=== PATIENT | male | born 2000 | race Caucasian/White ===

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

== ENCOUNTER 2024-08-13 02:59 | Emergency (ER) | payer OTHER ==
[~2024-08-13] VITALS: Ht 172.7 cm; Wt 181.0 kg
[~2024-08-13 02:59] MED LIST changes: +AUGMENTIN875TAB PO; +TESSALON PER100 MG PO; +ZITHROMAX500 MG PO
[2024-08-13 03:10] VITALS: BP 176/71
[2024-08-13] MEDS ORDERED: IBUPROFEN600 MG PO (20:18)
== END 2024-08-13 03:10 | disposition home or self-care (01) | DRG 951 ==
LOC: ED 02:59
DX: Z02.89 Encounter for other administrative examinations (principal); Z04.1 Encounter for examination and observation following transport accident; F10.129 Alcohol abuse with intoxication, unspecified; J45.909 Unspecified asthma, uncomplicated

== ENCOUNTER 2024-08-13 17:52 | Emergency (ER) | payer OTHER ==
[~2024-08-13] VITALS: Ht 188 cm; Wt 172.0 kg
[2024-08-13] VITALS (9 sets, daily range): BP systolic 148–193; BP diastolic 79–119
[2024-08-13] MEDS ORDERED: Diph, Acellular Pertussis, Tet 0.5 ML/VIAL (Tdap) SDV IM ONE (18:20)
[2024-08-13 18:36] LABS: BASO% 0.4 % (0-3); EOS% 0.9 % (0-8); HEMATOCRIT 41.7 % (39.0-50.0); HEMOGLOBIN 14.3 g/dl (14.0-18.0); IMMATURE GRANULOCYTES 0.2 % (0.0-5.0); LYMPH% 19.2 % (15-41); MEAN CORPUSCULAR HGB 28.9 pG CALC (26.0-32.0); MEAN CORPUSCULAR HGB CONC 34.3 g/dL CAL (32.0-36.0); MONO% 11.5 % (2-13); NEUT# 8.88 thou/uL (1.82-7.42); NEUT% 67.8 % (42-76); RED BLOOD COUNT 4.94 mill/uL (4.70-6.10); RED CELL DISTRI WIDTH 12.6 % (11.5-15.5)
[2024-08-13 18:37] LABS: MEAN CELL VOLUME 84.4 fL CALC (80.0-100.0)
[2024-08-13 18:53] LABS: ALBUMIN 4.8 g/dL (3.2-5.0); ALKALINE PHOSPHATASE 112 u/l (38-126); ANION GAP 15 (6-22 (CALC)); BILIRUBIN, TOTAL 0.5 mg/dL (0.2-1.3); BUN 18 mg/dL (9-20); BUN/CREATININE RATIO 19 (12-20 (CALC)); CARBON DIOXIDE 26 mmol/l (22-30); CHLORIDE 102 mmol/l (95-108); ESTIMATED GFR 108 ML/MIN (>=90 (CALC)); LIPASE 52 u/l (23-300); POTASSIUM 4.2 mmol/l (3.5-5.1); SODIUM 139 mmol/l (137-146); TOTAL PROTEIN 8.2 g/dL (6.3-8.2)
[2024-08-13 18:58] LABS: SGOT/AST 55 u/l (17-59)
[2024-08-13] MEDS ORDERED: IBUPROFEN600 MG PO (20:18)
== END 2024-08-13 21:55 | disposition home or self-care (01) | DRG 605 ==
LOC: ED 17:52
PROVIDERS: Family Medicine
DX: S80.212A Abrasion, left knee, initial encounter (principal); T14.8XXA Other injury of unspecified body region, initial encounter; R07.89 Other chest pain; M25.532 Pain in left wrist; M25.531 Pain in right wrist; M25.511 Pain in right shoulder; M54.6 Pain in thoracic spine; M79.642 Pain in left hand; J45.909 Unspecified asthma, uncomplicated; V47.5XXA Car driver injured in collision with fixed or stationary object in traffic accident, initial encounter
CPT/HCPCS: 90715; J0690; Q9967